=== PATIENT | female | born 1975 | race African-American/Black ===

== ENCOUNTER 2024-11-28 13:02 | Emergency (ER) | payer OTHER ==
[~2024-11-28] VITALS: Ht 165.1 cm; Wt 116.7 kg
[2024-11-28] MEDS: SODIUM CHLORIDE 0.9% 1000ML 1,000 ML IV ONE (14:20)
[2024-11-28] MEDS: KETOROLAC TROMETHAMINE 30 MG/ML VIAL IV STA (15:21)
[2024-11-28 17:49] VITALS: PULSE 75; RESP 18; TEMP 98; O2SAT 100
== END 2024-11-28 17:52 | disposition home or self-care (01) ==
LOC: FSED 13:55
DX: M79.661 Pain in right lower leg (principal); R25.2 Cramp and spasm; I10 Essential (primary) hypertension
CPT/HCPCS: 80048; 80076; 81003; 84484; 85025; 85379; 93971; 99283; J1885; J7030